=== PATIENT | female | born 1985 | race African-American/Black ===

== ENCOUNTER 2024-08-01 20:11 | Emergency (ER) | payer MEDICAID, OTHER ==
[~2024-08-01] VITALS: Ht 170.2 cm; Wt 72.6 kg
[2024-08-01] MEDS ORDERED: METH-647 PO (21:35)
[2024-08-01] MEDS ORDERED: IBUP-1490 PO (21:35)
[2024-08-01] MEDS ORDERED: LIDO1ADH71 TP (21:37)
[2024-08-01] MEDS ORDERED: KETOROLAC TROMETHAMINE 15 MG/ML VIAL ONE (21:41)
[2024-08-01 21:45] VITALS: BP 129/69; TEMP 98.3; O2SAT 98
[2024-08-01] MEDS ORDERED: KETOROLAC TROMETHAMINE 15 MG/ML VIAL IM ONE (22:00)
== END 2024-08-01 21:46 | disposition home or self-care (01) ==
LOC: ER 20:24
DX: M54.6 Pain in thoracic spine (principal)
CPT/HCPCS: J1885